=== PATIENT | male | born 1955 | race Caucasian/White ===

== ENCOUNTER 2024-07-28 11:56 | Day surgery (SDC) | payer MEDICARE, SELFPAY ==
--- NOTE | 2024-07-28 12:11 | PCM.HP.BLA ---
History and Physical Date of Admission: 07/28/24 The patient is examined and there are no changes to the H&P dated 07/19/2024. He presents for excision of a biopsy-proven basal cell skin cancer of the right brow. Informed consent is obtained. He is marked in the preop holding area prior to surgery. Assessment & Plan Assessment/Plan (1) BCC (basal cell carcinoma), face: PLAN: Plan For excision BCC right brow with FS
[2024-07-28 12:31] VITALS: BP 134/61; PULSE 83; RESP 16; TEMP 36.8; O2SAT 98; BMI 28.2
[2024-07-28 13:00] VITALS: BP 132/57; BP 158/79; O2SAT 95; O2SAT 97; O2SAT 98; O2SAT 99
--- NOTE | 2024-07-28 13:00 | LES_PTH ---
PATIENT: CHAD ROBERTSON Jr. LOC: [facility] U#:[id number] AGE/SX: 68/M ROOM: RE07/28/[address]: Dr. Silvia Olivares MD : 1955 BED: DIS: 07/28/2024 SPEC #: [id number] RECD: 07/28/24 13:51 STATUS: DIONNE RENury #: [id number] FRANCISCO: 07/28/24 13:[address]: Silvia Olivares DEPT: SURGICAL PATHOLOGY RECD BY: Giovanny Ortez ENTERED: 07/28/24 13:52 SP TYPE: Lesion OTHR DR: Dr. Dalila Bernstein MD Tissues: Skin of face, NOS Procedures: Frozen Section (charge) Surgery Specimen Level IV HEADER OPERATION: Excision basal cell carcinoma right brow with frozen section PRE-OP DIAGNOSIS: Basal cell carcinoma, face TISSUE SUBMITTED: Basal cell carcinoma, right brow FROZEN SECTION DIAGNOSIS Right brow lesion, excision: Margins are free of lesion. SJ.mr 07/28/2024 MICROSCOPIC DIAGNOSIS Right brow lesion, excision: Residual basal cell carcinoma, completely excised. Mild actinic keratosis and solar elastosis. Changes consistent with previous biopsy site. See comment. Jeannette 07/29/2024 COMMENT Residual tumor measures 0.3 x 0.2cm (measured microscopically). Please also make reference to previous specimen from [facility], dated 07/08/24, [id number], forehead, shave with diagnosis of basal cell carcinoma with squamous features. MICROSCOPIC DESCRIPTION Slides are reviewed. GROSS DESCRIPTION Received fresh for frozen section diagnosis labeled with the patient's name is a specimen designated Right brow. The specimen consists of an ovoid piece of skin measuring 1.1 x 0.9 x 0.3cm. The specimen is oriented on the gauze piece. The specimen is inked as follows: 3o'clock-yellow, 9o'clock-green, 12o'clock- black, 6o'clock-blue. The specimen is serially sectioned and submitted for frozen section diagnosis in two cassettes. 07/28/2024 TC:0 CPT:61452,24235,84185
[2024-07-28] MEDS: Povidone Iodine 30 ML Opthalmic Sol 1 DRP (13:07)
[2024-07-28] MEDS: Lidocaine 1% /Epi 1:100 9 ML, Sodium Bicarbonate 1 MEQ OPERA.SITE (13:13)
--- NOTE | 2024-07-28 14:02 | EX.PCM.DISCH ---
Discharge Instructions Dressing / Incision Additional Dressing/Incision Instructions:: Keep your head elevated (recliner position) for the next 4 nights to decrease swelling and bruising. Take the oral antibiotic (Keflex) 2 times a day until finished. Keep the tape dry??do not remove until seen in the office. Follow Up Care Please Follow Up With: Silvia Olivares MD When: 2 weeks Test Results: Test results from this visit will be discussed in further detail at your follow-up appointment, if applicable. Discharge Plan Admission Attending Provider: Silvia Olivares Primary Care Provider: Dalila Bernstein Instructions Print Language: Upper Sorbian Discharge Orders/Prescriptions Prescriptions: No Action fluorouracil 5 % cream topical cyanocobalamin (vitamin B-12) 1,000 mcg capsule 1,000 mcg PO QDAY ferrous sulfate 325 mg (65 mg iron) tablet 325 mg PO QDAY multivitamin [Daily Multi-Vitamin] Tablet 1 tab PO QAM Referrals / Follow Up: Dalila Bernstein MD [Primary Care Provider] - Disposition Disposition (needs filled in before D/C Order can be placed): Home, Self Care
--- NOTE | 2024-07-28 14:04 | PCM.OPRPT ---
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 Type of Anesthesia: Local RN Documented Start/Stop Times: Operation Date: 07/28/24 12:55 Case Time Into Pre-Op 07/28/24 12:10 Into Room 07/28/24 12:55 Out of Pre-Op 07/28/24 13:00 Procedure Start 07/28/24 13:13 Procedure End 07/28/24 13:58 Anesthesia End 07/28/24 14:01 Out of Room 07/28/24 14:01 Procedure Start Time: 13:13 Procedure Stop Time: 13:58 Select all DRAINS/GRAFTS/IMPLANTS that apply: None Estimated Blood Loss: Minimal Specimen collected: Yes Description of specimen(s) removed: BCC right brow Description of surgery: The patient presents today with a biopsy-proven basal cell skin cancer of the right brow. He presents for excision of the neoplasm with frozen section evaluation of margins. The patient is noted preoperatively to have asymmetry of his eyebrows with the right eyebrow not elevating as high as the left. Additionally, the risks of surgery were reviewed with the patient including numbness, hair loss at the eyebrow, and scar tissue. The patient is brought to the operating room and placed on the operating room table in the supine position. The right brow was prepped and draped in the usual sterile fashion. 1% Xylocaine with epinephrine and buffered with sodium bicarb is used for local anesthetic. Following this, the area is excised and passed off the operative field to be sent to pathology for frozen section. Hemostasis is controlled with cautery. Orientation of the specimen is maintained. The specimen is tacked together with silk sutures. Frozen section reveals clear margins. The wound is then closed in layers using Monocryl suture in the subcutaneous tissue and dermis. Skin edges are approximated with a running chromic suture. Dermabond and Steri-Strips are placed on the wound. He tolerated the procedure well was taken to the recovery area in an awake and stable condition. Needle and sponge counts are correct. Surgical Findings: BCC right brow Complications Complications: No Admit VTE Documentation VTE Present on Admission: No Reason prophylaxis not ordered: Treatment Not Indicated
[2024-07-28 14:11] VITALS: BP 134/61; BP 153/65; PULSE 72; RESP 16; TEMP 36.9; O2SAT 96
--- NOTE | 2024-07-28 14:20 | EX.PCM.DISCH ---
Discharge Instructions Dressing / Incision Additional Dressing/Incision Instructions:: Keep your head elevated (recliner position) for the next 4 nights to decrease swelling and bruising. Take the oral antibiotic (Keflex) 2 times a day until finished. Keep the tape dry??do not remove until seen in the office. Follow Up Care Please Follow Up With: Silvia Olivares MD Test Results: Test results from this visit will be discussed in further detail at your follow-up appointment, if applicable. Discharge Plan Admission Attending Provider: Silvia Olivares Primary Care Provider: Dalila Bernstein Instructions Print Language: Vincentian Discharge Orders/Prescriptions Prescriptions: New cephalexin 500 mg capsule 500 mg PO BID 5 Days Qty: 10 0RF No Action fluorouracil 5 % cream topical cyanocobalamin (vitamin B-12) 1,000 mcg capsule 1,000 mcg PO QDAY ferrous sulfate 325 mg (65 mg iron) tablet 325 mg PO QDAY multivitamin [Daily Multi-Vitamin] Tablet 1 tab PO QAM Referrals / Follow Up: Dalila Bernstein MD [Primary Care Provider] - Disposition Disposition (needs filled in before D/C Order can be placed): Home, Self Care
== END 2024-07-28 14:19 | disposition home or self-care (01) ==
LOC: SDC 12:07 → AC 12:08
PROVIDERS: PCP Family Medicine; Referring Provider Plastic Surgery; Visit Provider Plastic Surgery
PROC: (CPT 11642; principal; 2024-07-28 12:45)
DX: C44.319 Basal cell carcinoma of skin of other parts of face (principal)
CPT/HCPCS: 11642; 12051; 88305; 88331